=== PATIENT | female | born 1995 | race Two or more races ===

== ENCOUNTER 2024-12-07 02:57 | Inpatient (IN) | payer OTHER ==
[~2024-12-07] VITALS: Ht 154.9 cm; Wt 78.0 kg
[2024-12-07] VITALS (9 sets, daily range): BP systolic 106–126; BP diastolic 57–68
[2024-12-07] MEDS ORDERED: PRENATABS RX T1 EACH PO (02:59)
[2024-12-07] MEDS ORDERED: MORPHINE SULFATE 4 MG/ML CARTRIDGE IV PRN (03:00)
[2024-12-07] MEDS ORDERED: RINGERS SOLUTION,LACTATED 1,000 ML IV SCH (03:00)
[2024-12-07 04:27] LABS: BASO % 0.4 % (0.1-1.2); EOS % 0.8 % (0.7-7.0); HEMATOCRIT 36.3 % (34.1-44.9); HEMOGLOBIN 12.2 g/dL (11.2-15.7); LYMPH # 2.63 (1.18-3.74); LYMPH % 20.6 % (19.3-53.1); MONO # 1.25 (0.24-0.82); MONO % 9.8 % (4.7-12.5); NEUT # 8.57 (1.56-6.13); NEUT % 67.3 % (34.0-71.1); PLATELET COUNT 235 K/uL (163-369); RED BLOOD COUNT 3.94 M/uL (3.93-5.22); RED CELL DISTRIBUTION WIDTH 13.9 % (11.6-14.4)
[2024-12-07 04:36] LABS: INR < 0.93; PARTIAL THROMBOPLASTIN TIME 26.2 SECONDS (22.0-34.0); PROTHROMBIN TIME 9.9 SECONDS (9.0-11.5)
[2024-12-07 04:42] LABS: ALBUMIN 2.9 gm/dL (3.4-5.0); BILIRUBIN TOTAL 0.33 mg/dL (0.3-1.2); CALCIUM 8.6 mg/dL (8.5-10.1); CREATININE SERUM 0.43 mg/dL (0.55-1.02); GFR 171.26; GLOBULINA 3.8 G/DL (2.4-3.5); POTASSIUM 3.76 mEq/L (3.5-5.1); TOTAL PROTEIN 6.7 gm/dL (6.4-8.2)
[2024-12-07] MEDS ORDERED: OXYTOCIN 500 ML IV ONE (08:15)
[2024-12-07] MEDS ORDERED: OXYTOCIN 20 UNITS/1000ML RL PIGGYBAG IV ONE (12:43)
[2024-12-07] MEDS ORDERED: LIDOCAINE HCL 1% 10ML VIAL ONE (12:43)
[2024-12-07] MEDS ORDERED: CHLORHEXIDINE GLUCONATE 120 ML BOTTLE TOP ONE (12:43)
[2024-12-07] MEDS ORDERED: ERYTHROMYCIN BASE OPHT 1GM EACH TUBE OP ONE ×2 (12:43→15:45)
[2024-12-07] MEDS ORDERED: OXYTOCIN 1,000 ML IV SCH (13:30)
[2024-12-07] MEDS ORDERED: CHLORHEXIDINE GLUCONATE 120 ML BOTTLE TP SCH (13:30)
[2024-12-07] MEDS ORDERED: IBUprofen 400 MG TABLET PO PRN (13:30)
[2024-12-07] MEDS ORDERED: METHYLERGONOVINE MALEATE 0.2 MG/ML AMPUL IM SCH (21:00)
[2024-12-08 01:57] VITALS: BP 100/60
[2024-12-08 06:59] LABS: BASO % 0.3 % (0.1-1.2); EOS # 0.14 (0.04-0.54); EOS % 1.1 % (0.7-7.0); HEMATOCRIT 35.5 % (34.1-44.9); HEMOGLOBIN 11.8 g/dL (11.2-15.7); LYMPH # 2.45 (1.18-3.74); LYMPH % 18.8 % (19.3-53.1); MEAN CORPUSCULAR HEMOGLOBIN 31.2 pg (25.6-32.2); MONO # 1.31 (0.24-0.82); NEUT # 8.96 (1.56-6.13); NEUT % 68.7 % (34.0-71.1); PLATELET COUNT 204 K/uL (163-369); RED BLOOD COUNT 3.78 M/uL (3.93-5.22); RED CELL DISTRIBUTION WIDTH 14.3 % (11.6-14.4)
[2024-12-08 08:00] VITALS: BP 101/64
[2024-12-08] MEDS ORDERED: FF) RHO(D) IMMUNE GLOBULIN (POM) IM SCH (08:30)
[2024-12-08 16:00] VITALS: BP 97/65
[2024-12-09 01:15] VITALS: BP 100/62
[2024-12-09 08:16] VITALS: BP 102/66
== END 2024-12-09 11:10 | disposition home or self-care (01) | DRG 807 ==
LOC: LDR 02:57 → OB/GYN 02:57
PROVIDERS: Obstetrics & Gynecology; ADMIT Obstetrics & Gynecology; ATTEND Obstetrics & Gynecology
PROC: 10E0XZZ Delivery of Products of Conception, External Approach (ICD-10-PCS; principal; 2024-12-07)
PROC: 4A1HXCZ Monitoring of Products of Conception, Cardiac Rate, External Approach (ICD-10-PCS; 2024-12-07)
DX: O99.824 Streptococcus B carrier state complicating childbirth (principal); Z37.0 Single live birth; Z3A.38 38 weeks gestation of pregnancy